=== PATIENT | female | born 1985 | race Caucasian/White ===

== ENCOUNTER 2016-09-01 16:31 | Emergency (ER) | payer BC ==
[2016-09-01 16:43] VITALS: BP 164/110
[2016-09-01] MEDS ORDERED: HYDROcodone/ACETAMIN 5-325 MG* 1 TAB PO ONE (17:22)
--- NOTE | 2016-09-01 17:24 | UC ---
Ear Complaint HPI - HPI Summary HPI Summary: right ear pain for 3 days, now has left ear pain sore throat eye and nasal drainage---also has not taken blood pressure medications in 2 months - History of Current Complaint Chief Complaint: UCRespiratory Stated Complaint: EAR PAIN,SORE THROAT,COUGH Time Seen by Provider: 09/01/16 17:02 Hx Obtained From: Patient Hx Last Menstrual Period: 08/11/16 ?: No Onset/Duration: Gradual Onset, Lasting Days, Worse Since - today Severity Initially: Mild Severity Currently: Moderate Pain Intensity: 8 Pain Scale Used: 0-10 Numeric Aggravating Factors: Nothing Alleviating Factors: Nothing - Allergies/Home Medications Allergies/Adverse Reactions: Allergies Allergy/AdvReac Type Severity Reaction Status Date / Time Amoxicillin Allergy Unknown Verified 09/01/16 16:43 Reaction Details Morphine Allergy Hives Verified 09/01/16 16:43 PMH/Surg Hx/FS Hx/Imm Hx Previously Healthy: No Cardiovascular History: Hypertension - Surgical History Surgical History: Yes Surgery Procedure, Year, and Place: [facility] 2006 - Family History Known Family History: Positive: None - Social History Occupation: Employed Full-time Lives: With Family Alcohol Use: Occasionally Substance Use Type: None Smoking Status (MU): Heavy Every Day Tobacco Smoker Review of Systems Constitutional: Fatigue Skin: Negative Eyes: Eye Redness ENT: Sore Throat, Ear Ache, Nasal Discharge, Sinus Congestion, Sinus Pain/ Tenderness Respiratory: Cough Cardiovascular: Negative Gastrointestinal: Negative Genitourinary: Negative Motor: Negative Neurovascular: Negative Musculoskeletal: Negative Neurological: Negative Psychological: Negative All Other Systems Reviewed And Are Negative: Yes Physical Exam Triage Information Reviewed: Yes Appearance: Well-Nourished, Ill-Appearing, Pain Distress Vital Signs: Initial Vital Signs Temp 98.8 F 09/01/16 16:37 Pulse 94 09/01/16 16:37 Resp 16 09/01/16 16:37 BP 164/110 09/01/16 16:37 Pulse Ox 100 09/01/16 16:37 Vital Signs Reviewed: Yes Eye Exam: Normal Eyes: Positive: Discharge - clear ENT Exam: Normal ENT: Positive: Normal ENT inspection, Nasal congestion, Nasal drainage, TM dull , TM red. Negative: Hearing grossly normal, Tonsillar swelling, Tonsillar exudate, Trismus, Muffled/hoarse voice Dental Exam: Normal Neck exam: Normal Neck: Positive: Supple, Nontender, No Lymphadenopathy Respiratory Exam: Normal Respiratory: Positive: Chest non-tender, Lungs clear, Normal breath sounds, No respiratory distress, No accessory muscle use Cardiovascular Exam: Normal Cardiovascular: Positive: RRR, No Murmur, Pulses Normal, Brisk Capillary Refill Musculoskeletal Exam: Normal Musculoskeletal: Positive: Strength Intact, ROM Intact, No Edema Neurological Exam: Normal Neurological: Positive: Alert, Muscle Tone Normal Psychological Exam: Normal Skin Exam: Normal Ear Complaint Course/Dx - Course Course Of Treatment: zithromax, flonase, pain med, zyrtec, follow with pcp--- restart blood pressure meds - Differential Dx/Diagnosis Differential Diagnosis/HQI/PQRI: Otitis Externa, Otitis Media, Perforated TM, Pharyngitis, Trauma, Trigeminal Nueralgia, URI Provider Diagnoses: Acute sinusitis, Hypertension in poor control Discharge - Discharge Plan Condition: Stable Disposition: HOME Prescriptions: Amlodipine Besylate [Norvasc 5 mg tab] 5 mg PO DAILY #30 tab Azithromycin TAB* [Zithromax TAB (Z-PRABHJOT) 250 mg #6 tabs] 250 mg PO DAILY #6 tab Cetirizine-Pseudoephedrine [Zyrtec-D Allergy/Congesti 5-120 mg] 1 tab PO BID PRN #30 tab PRN Reason: sinus congestion Cetirizine-Pseudoephedrine [Zyrtec-D Allergy/Congesti 5-120 mg] 1 tab PO BID PRN #30 tab PRN Reason: nasal congestion Fluticasone NASAL SPRAY 50MCG* [Flonase NASAL SPRAY 50MCG*] 2 spray BOTH NARES DAILY #1 btl Hydrocodone-Acetaminophen [Hydrocodone/Acetaminophen 5-325 mg] 1 tab PO Q6HR PRN #8 tab MDD 4 PRN Reason: Pain Patient Education Materials: Sinusitis (ED), DASH Eating Plan (ED), Hypertension (ED), How to Use Nasal [place] (ED) Forms: *Work Release Referrals: Tiara Hinojosa MD [Primary Care Provider] - 2 Weeks
== END 2016-09-01 17:40 | disposition home or self-care (01) ==
LOC: UCCORT 16:31
DX: J01.90 Acute sinusitis, unspecified (principal); I10 Essential (primary) hypertension; F17.200 Nicotine dependence, unspecified, uncomplicated; Z88.0 Allergy status to penicillin; Z88.5 Allergy status to narcotic agent
CPT/HCPCS: 99212; G0463

== ENCOUNTER 2017-04-05 12:12 | Emergency (ER) | payer BC ==
[2017-04-05 14:33] VITALS: BP 174/108
--- NOTE | 2017-04-05 14:50 | UC ---
Respiratory Complaint HPI - HPI Summary HPI Summary: 31 yo female has been ill x about 3 days fever cough some nausea/vomiting left eye watering t max 103+ no ANNE no myalgias no runny nose no sore throat no CP - History of Current Complaint Chief Complaint: UCRespiratory Stated Complaint: FEVER,COUGH Time Seen by Provider: 04/05/17 14:31 Hx Obtained From: Patient Hx Last Menstrual Period: 03/08/17 Onset/Duration: Gradual Onset, Lasting Days Timing: Constant Severity Initially: Mild Severity Currently: Moderate Pain Intensity: 0 Pain Scale Used: 0-10 Numeric Character: Cough: Nonproductive Aggravating Factors: Nothing Alleviating Factors: Nothing Associated Signs And Symptoms: Positive: Fever, Chills - Allergies/Home Medications Allergies/Adverse Reactions: Allergies Allergy/AdvReac Type Severity Reaction Status Date / Time MS Amoxicillin [Amoxicillin] Allergy Unknown Verified 04/05/17 14:27 Reaction Details MS Morphine [Morphine] Allergy Hives Verified 04/05/17 14:27 PMH/Surg Hx/FS Hx/Imm Hx Previously Healthy: Yes Cardiovascular History: Hypertension - no longer on her meds - Surgical History Surgical History: Yes Surgery Procedure, Year, and Place: ears 2006 - Family History Known Family History: Positive: Hypertension - Social History Alcohol Use: Occasionally Substance Use Type: None Smoking Status (MU): Heavy Every Day Tobacco Smoker Type: Cigarettes Amount Used/How Often: 1/2 PPD Review of Systems Constitutional: Fever, Chills Skin: Negative Eyes: Negative ENT: Negative Respiratory: Cough Cardiovascular: Negative Gastrointestinal: Negative Genitourinary: Negative Motor: Negative Neurovascular: Negative Musculoskeletal: Negative Neurological: Negative Psychological: Negative Is Patient Immunocompromised?: No All Other Systems Reviewed And Are Negative: Yes Physical Exam Triage Information Reviewed: Yes Completion Of Physical Exam Limited Due To: Extremis Appearance: Well-Appearing, No Pain Distress, Well-Nourished Vital Signs: Initial Vital Signs Temp 101.2 F 04/05/17 14:27 Pulse 99 04/05/17 14:27 Resp 24 04/05/17 14:27 BP 174/108 04/05/17 14:27 Pulse Ox 97 04/05/17 14:27 Vital Signs Reviewed: Yes Eyes: Positive: Conjunctiva Clear ENT: Positive: Hearing grossly normal, TMs normal, Uvula midline. Negative: Pharyngeal erythema, Nasal congestion, Nasal drainage, Tonsillar swelling, Tonsillar exudate, Trismus, Muffled voice, Hoarse voice, Dental tenderness, Sinus tenderness Neck: Positive: Supple, Nontender, No Lymphadenopathy Respiratory: Positive: No respiratory distress, No accessory muscle use, Rhonchi Cardiovascular: Positive: RRR, No Murmur, Pulses Normal Musculoskeletal: Positive: ROM Intact, No Edema Neurological: Positive: Alert Psychological Exam: Normal Skin Exam: Normal UC Diagnostic Evaluation - Laboratory O2 Sat by Pulse Oximetry: 97 - normal/not hypoxic - Radiology Xray Interpretation: Positive (See Comments) - PATCHY AIRSPACE DISEASE OF THE LUNGS BILATERALLY. RECOMMEND FOLLOW-UP UNTIL RESOLUTION TO Radiology Interpretation Completed By: Radiologist Respiratory Course/Dx - Differential Dx/Diagnosis Provider Diagnoses: pneumonia Discharge - Discharge Plan Condition: Stable Disposition: HOME Prescriptions: Levofloxacin TAB* [Levaquin TAB*] 500 mg PO DAILY #7 tab Promethazine TAB* [Phenergan TAB*] 25 mg PO Q6H PRN #8 tab PRN Reason: Nausea Patient Education Materials: Pneumonia (ED) Forms: *Work Release Referrals: [facility] [place]] - As Soon As Possible Additional Instructions: rest fluids tylenol or advil recheck in 48 hours if still febrile if symptoms worsen go to the ER YOU NEED TO FIND A BUCKRAM SEWER TO FOLLOW YOUR BLOOD PRESSURE AND START TREATMENT IF INDICATED THE RADIOLOGIST SUGGESTS A REPEAT CHEST XR TO ASSURE RESOLUTION OF YOUR PNEUMONIA. I SUGGEST YOU GET THIS DONE IN 2-4 WEEKS. IF UNABLE TO FIND A PRIMARY BY THEN YOU ARE WELCOME TO RETURN HERE Phenergan will cause drowsiness
--- NOTE | 2017-04-05 15:01 | RAD ---
HISTORY: Fever, cough COMPARISONS: None VIEWS: 4: Frontal dual-energy and lateral views of the chest. FINDINGS: CARDIOMEDIASTINAL SILHOUETTE: The cardiomediastinal silhouette is normal. LINDA: The linda are normal. PLEURA: The costophrenic angles are sharp. No pleural abnormalities are noted. LUNG PARENCHYMA: There is patchy alveolar opacification of the right upper lung and left lower lung ABDOMEN: The upper abdomen is clear. There is no subphrenic gas. BONES AND SOFT TISSUES: No bone or soft tissue abnormalities are noted. OTHER: None. IMPRESSION: PATCHY AIRSPACE DISEASE OF THE LUNGS BILATERALLY. RECOMMEND FOLLOW-UP UNTIL RESOLUTION TO EXCLUDE UNDERLYING PULMONARY PARENCHYMAL PATHOLOGY.
== END 2017-04-05 15:31 | disposition home or self-care (01) ==
LOC: UCCORT 12:12
DX: J18.9 Pneumonia, unspecified organism (principal); F17.210 Nicotine dependence, cigarettes, uncomplicated; Z88.0 Allergy status to penicillin; Z88.5 Allergy status to narcotic agent; I10 Essential (primary) hypertension
CPT/HCPCS: 71046; 99212; G0463